=== PATIENT | male | born 1960 | race Caucasian/White ===

== ENCOUNTER 2016-12-28 10:06 | Emergency (ER) | payer BC, MEDICAID ==
[~2016-12-28] VITALS: Ht 165.1 cm; Wt 76.6 kg
[2016-12-28 10:09] VITALS: BP 128/84
[2016-12-28] MEDS ORDERED: KETOROLAC 30 MG/1 ML IM ONE (11:00)
[2016-12-28] MEDS ORDERED: HYDROmorphone 1 MG/ML, 1ML IM ONE ×2 (11:00→12:00)
[2016-12-28] MEDS ORDERED: DIAZEPAM 5 MG TABLET PO ONE (11:00)
[2016-12-28] MEDS ORDERED: HYDROmorphone 1 MG/ML, 1ML ONE (11:08)
[2016-12-28] MEDS ORDERED: KETOROLAC 30 MG/1 ML ONE (11:09)
[2016-12-28] MEDS ORDERED: DIAZEPAM 5 MG TABLET ONE (11:09)
[2016-12-28] MEDS ORDERED: HYDROmorphone 2 MG/ML, 1ML ONE (12:17)
== END 2016-12-28 13:03 | disposition home or self-care (01) ==
LOC: ED 11:30
DX: M48.06 Spinal stenosis, lumbar region (principal); G89.29 Other chronic pain
CPT/HCPCS: 96372; 99284; J1170; J1885

== ENCOUNTER 2017-04-02 11:05 | Emergency (ER) | payer MEDICAID ==
[~2017-04-02] VITALS: Ht 162.6 cm; Wt 73.3 kg
[~2017-04-02 11:05] MED LIST: CYCL-259 PO; GABA-827 PO; NALT50TA PO; OXYC-307 PO
[2017-04-02] MEDS ORDERED: HYDROmorphone 1 MG/ML, 1ML IM ONE ×3 (12:00→14:30)
[2017-04-02] MEDS ORDERED: DIAZEPAM 5 MG/ML, 10ML VIAL IM ONE (12:00)
[2017-04-02] MEDS ORDERED: HYDROmorphone 2 MG/ML, 1ML ONE ×4 (12:03→15:27)
[2017-04-02] MEDS ORDERED: ONDANSETRON 2MG/ML, 2ML ONE (14:23)
[2017-04-02] MEDS ORDERED: ONDANSETRON 2MG/ML, 2ML IVPush ONE (14:30)
[2017-04-02] MEDS: HYDROmorphone 1 MG/ML, 1ML IVPush PRN ×2 (14:34→15:35)
[2017-04-02 15:16] LABS: BLOOD UREA NITROGEN 14 mg/dL (7-18)
[2017-04-02] MEDS ORDERED: DIAZEPAM 5 MG/ML, 2ML IV ONE (15:30)
[2017-04-02] MEDS ORDERED: GADOBUTROL 7.5 MMOL/7.5 ML PFS ONE (15:43)
[2017-04-02 16:00] VITALS: BP 110/60
[2017-04-02 16:02] LABS: HEMATOCRIT 40.9 % (39.2-51.8); HEMOGLOBIN 14.1 g/dL (13.7-18.0); WHITE BLOOD COUNT 6.4 x10^3/uL (3.4-10)
== END 2017-04-02 16:25 ==
LOC: ED 11:21
DX: G89.29 Other chronic pain (principal); M54.9 Dorsalgia, unspecified; Z87.891 Personal history of nicotine dependence
CPT/HCPCS: 36415; 72158; 80048; 82040; 85025; 96372; 96374; 96375; 96376; 99285; A9585; J1170; J2405; J3360

== ENCOUNTER 2017-04-18 02:44 | Emergency (ER) | payer MEDICAID ==
[~2017-04-18] VITALS: Ht 162.6 cm; Wt 74.4 kg
[2017-04-18] MEDS ORDERED: HYDROmorphone 2 MG/ML, 1ML IM ONE (04:00)
[2017-04-18] MEDS ORDERED: CYCLOBENZAPRINE 10 MG TABLET PO ONE (04:00)
[2017-04-18] MEDS ORDERED: KETOROLAC 30 MG/1 ML IM ONE (04:00)
[2017-04-18] MEDS ORDERED: KETOROLAC 30 MG/1 ML ONE (04:30)
[2017-04-18] MEDS ORDERED: CYCLOBENZAPRINE 10 MG TABLET ONE (04:30)
[2017-04-18] MEDS ORDERED: HYDROmorphone 2 MG/ML, 1ML ONE (04:30)
[2017-04-18 05:17] VITALS: BP 129/74
== END 2017-04-18 05:18 | disposition home or self-care (01) ==
LOC: ED 04:40
DX: S39.012A Strain of muscle, fascia and tendon of lower back, initial encounter (principal); G89.29 Other chronic pain; M54.5 Low back pain; X58.XXXA Exposure to other specified factors, initial encounter; Y93.89 Activity, other specified; Y92.89 Other specified places as the place of occurrence of the external cause; Y99.8 Other external cause status
CPT/HCPCS: 96372; 99284; J1170; J1885

== ENCOUNTER 2017-04-25 08:02 | Emergency (ER) | payer MEDICAID ==
[~2017-04-25] VITALS: Ht 162.6 cm; Wt 71.4 kg
[2017-04-25 08:04] VITALS: BP 121/67
[2017-04-25] MEDS ORDERED: KETOROLAC 30 MG/1 ML IM ONE (08:30)
[2017-04-25] MEDS ORDERED: HYDROmorphone 1 MG/ML, 1ML IM ONE (08:30)
[2017-04-25] MEDS ORDERED: HYDROmorphone 2 MG/ML, 1ML ONE (08:35)
[2017-04-25] MEDS ORDERED: KETOROLAC 30 MG/1 ML ONE (08:35)
[2017-04-25 08:57] LABS: RAPID INFLUENZA A Negative (Negative); RAPID INFLUENZA B Negative (Negative)
[2017-04-25] MEDS ORDERED: DEXAMETHASONE 4 MG TABLET ONE (10:07)
[2017-04-25] MEDS ORDERED: DEXAMETHASONE 4 MG TABLET PO ONE (10:30)
== END 2017-04-25 10:12 | disposition home or self-care (01) ==
LOC: ED 08:22
DX: M48.061 Spinal stenosis, lumbar region without neurogenic claudication (principal); G89.29 Other chronic pain; J20.9 Acute bronchitis, unspecified
CPT/HCPCS: 71046; 87400; 96372; 99285; J1170; J1885

== ENCOUNTER 2020-09-28 09:43 | Emergency (ER) | payer MEDICAID ==
[~2020-09-28] VITALS: Ht 162.6 cm; Wt 77.5 kg
[~2020-09-28 09:43] MED LIST changes: -CYCL-259 PO; +CYCL10TA2 PO; -OXYC-307 PO; +OXYC-380 PO
--- NOTE | 2020-09-28 09:51 | NUR ---
Pt ambulatory from triage to room with steady gait noted. demonstrator sewing techniques going to grab EKG for 12 lead and pt changing into gown now.
--- NOTE | 2020-09-28 09:55 | NUR ---
product development chemist completed. Awaiting MD exam.
[2020-09-28] MEDS ORDERED: DOCUSATE 50 MG/5 ML, 10ML UDC OTIC ONE (10:30)
[2020-09-28] MEDS ORDERED: DOCUSATE 50 MG/5 ML, 10ML UDC ONE (10:39)
--- NOTE | 2020-09-28 10:42 | NUR ---
Liquid colace to R ear applied per PA request at this time.
--- NOTE | 2020-09-28 11:30 | NUR ---
R ear irrigated with warm water with minimal wax noted coming out. Pt irrigated with approximately 150mL. Pt tolerated with some discomfort noted. Pt resting on R side awaiting MD reassessment at this time.
--- NOTE | 2020-09-28 12:03 | NUR ---
Continues to await MD reassessment. MD aware that ear irrigation has been completed.
[2020-09-28 12:12] VITALS: BP 128/73
[2020-09-28] MEDS ORDERED: OXYcodone/APAP 5/325MG TABLET ONE (12:14)
--- NOTE | 2020-09-28 12:18 | NUR ---
Pt states MD was in to see him. PO pain med given at this time for R ear pain. Pt able to stand and walk to restroom and back with steady gait.
[2020-09-28] MEDS ORDERED: OXYcodone/APAP 5/325MG TABLET PO ONE (12:30)
--- NOTE | 2020-09-28 13:10 | NUR ---
Pt d/c'd and upon cleaning up room, found tablet still in med cup on bedside table. Med placed in sharps container. Pt therefore did not take the percocet as scanned.
== END 2020-09-28 13:13 | disposition home or self-care (01) ==
LOC: ED 13:05
DX: H60.501 Unspecified acute noninfective otitis externa, right ear (principal); H66.001 Acute suppurative otitis media without spontaneous rupture of ear drum, right ear; H61.21 Impacted cerumen, right ear; R00.0 Tachycardia, unspecified
CPT/HCPCS: 93005; 99284